=== PATIENT | female | born 1980 | race Caucasian/White ===

== ENCOUNTER 2016-07-20 11:44 | Inpatient (IN) | payer OTHER ==
[~2016-07-20] VITALS: Ht 167.6 cm; Wt 85.3 kg
--- NOTE | ~2016-07-20 | O ---
[place], [place] OPERATIVE NOTE NAME: KATHIA ROTHMAN UNIT #: [id number] ROOM: 405 DOCTOR: FAVIOLA CUEVAS MD BIRTHDATE: [birth year] DOS: GASTROENDOSCOPIC REPORT WORK: #06. INDICATIONS: The patient has presented with hemetemesis, undergoing investigation nausea, vomiting. Consultation has been dictated. PROCEDURE: Today's procedure part of investigation is panendoscopy plus biopsy. PREMEDICATION: Versed and Diprivan. SCOPE: Olympus folding gastroscope Q10 video. REPORT: After putting the patient in the left lateral position and after application of lubricant to the scope, the scope was introduced; thereafter, under direct visualization, I advanced through the length of the esophagus without difficulty. Esophagus and cervicothoracic distally carefully examined, distal esophagitis of minimal degree, hiatal hernia of about 2 cm, gastritis of moderate degree, antral biopsy was obtained. Duodenal bulb, second and third part within normal limits. The patient extubated, tolerated procedure well. IMPRESSION: Distal esophagitis. No Olivia-Alicea tear. Small hiatal hernia, gastritis, status post biopsy. PLAN: Protonix 40 mg q. day, regular diet. As far as UTI is concerned with heavy gram-negative bacteria, may be antibiotic as to continue on her based on sensitivity. As far as her hypokalemia, potassium can be given for potassium supplementation for 3.1 levels at the present time. Magnesium is normal. Liver function tests are normal. The latest CBC differential within normal limits. Thank you very much indeed. [place], [place] OPERATIVE NOTE NAME: KATHIA ROTHMAN UNIT #: [id number] ROOM: 405 DOCTOR: FAVIOLA CUEVAS MD BIRTHDATE: [birth year] FAVIOLA CUEVAS MD CM:OPRECORD:OPERATIVE NOTE [id number] FAVIOLA CUEVAS MD 08/26/16 0941 interface
--- NOTE | ~2016-07-20 | CON ---
[place], [place] REPORT OF CONSULTATION NAME: KATHIA ROTHMAN UNIT #: [id number] ROOM: 405 DOCTOR: FAVIOLA CUEVAS MD BIRTHDATE: [birth year] DOS: GASTROENDOSCOPIC CONSULTATION REPORT HISTORY OF PRESENT ILLNESS: A 36-year-old patient who has presented with nausea, vomiting, hematemesis and not feeling well. The patient presented to Emergency Room. The patient has been consuming large volume of alcohol vodka pint daily and therefore, we are searching the cause of hematemesis on her and consultation on this base. PAST MEDICAL HISTORY: Unremarkable. PAST SURGICAL HISTORY: Tonsillectomy, adenoidectomy, umbilical hernia x 2. SOCIAL HISTORY: Marijuana use, smoker, and alcohol consumer. ALLERGIES: TO PENICILLIN. FAMILY HISTORY: Noncontributory. REVIEW OF SYSTEMS: In general, HEENT: Denies double vision, blurred vision. RESPIRATORY: Denies shortness of breath. CARDIOVASCULAR: Denies chest pain. DIGESTIVE SYSTEM: Hematemesis. PHYSICAL EXAMINATION: VITAL SIGNS: Stable. HEENT: Head normocephalic, nontraumatic. Mouth and buccal mucosa edentulous. NECK: Supple, no thyromegaly. CHEST: Symmetric anatomy, equal expansion. HEART: Normal sinus rhythm, no gallop, no murmur. ABDOMEN: Soft. No hepato-organomegaly, obese. No rebound effect. EXTREMITIES: No cyanosis. No pedal edema. NEUROLOGIC: Alert, oriented to time, place and person. No asterixis. No encephalopathy. LABORATORY DATA: Labs reviewed, records reviewed. Electrolyte balance. Lactic acid 2.5. Liver function test normal. INR 1.0. White blood cell 12, H and H of 14 and 42, platelet count was 287. IMPRESSION: Hematemesis, post consumption of large volume of vodka. OTHER ADJUNCTIVE DIAGNOSES: Nicotine and marijuana dependency. PLAN AND DISCUSSION: We are going to proceed with panendoscopy ruling out this Olivia-Alicea tear. Thank you again. [place], [place] REPORT OF CONSULTATION NAME: KATHIA ROTHMAN UNIT #: [id number] ROOM: 405 DOCTOR: FAVIOLA CUEVAS MD BIRTHDATE: [birth year] Sincerely yours, FAVIOLA CUEVAS MD CM:CONSTR:REPORT OF CONSULTATION 1347 08/26/16 0940 interface
[~2016-07-20 11:44] MED LIST: ATARAX25 MG PO; EES400 MG PO; LOTRISONE 0.05%1 CRE TP; NKHM; PREDNISONE20 MG PO; TESSALON PERLE100 M1 PO; TRAMADOL HCL50 MG PO; VIBRAMYCIN100 MG PO; ZITHROMAX Z PA250 MG PO
[2016-07-20 11:46] VITALS: BP 154/90
[2016-07-20 12:06] LABS: BASO % 0.3 % (0.0-1.0); HEMATOCRIT 42.5 % (37.0-47.0); HEMOGLOBIN 14.3 g/dl (12.0-16.0); IG # 0.1 10*3/uL (0.0-0.1); LYMPH % 15.7 % (27.0-41.0); MEAN CELL VOLUME 93.8 fl (81.0-99.0); MEAN CORPUSCULAR HGB 31.6 pg (27.0-31.0); MEAN CORPUSCULAR HGB CONC 33.6 g/dl (33.0-37.0); MEAN PLATELET VOLUME 9.5 fl (9.6-12.3); MONO # 0.5 10*3/uL (0.1-1.0); NEUT # 10.1 10*3/uL (2.3-7.9); NEUT % 79.4 % (47.0-73.0); PLATELET COUNT AUTOMATED 287 10*3/uL (130-400); RED BLOOD COUNT 4.53 10*6/uL (4.10-5.10); WHITE BLOOD COUNT 12.7 10*3/uL (4.8-10.8)
[2016-07-20 12:16] LABS: PROTHROMBIN TIME 10.5 SECONDS (9.0-12.4)
[2016-07-20 12:20] LABS: BILIRUBIN NEGATIVE (NEGATIVE); BLOOD TRACE-INTACT (NEGATIVE); CLARITY SL CLOUDY (CLEAR); COLOR YELLOW (YELLOW); GLUCOSE NEGATIVE (NEGATIVE); KETONE NEGATIVE (NEGATIVE); LEUKO ESTERASE NEGATIVE (NEGATIVE); NITRITE NEGATIVE (NEGATIVE); PROTEIN 2+ (NEGATIVE); SPECIFIC GRAVITY 1.015 (1.005-1.030); UROBILINOGEN 0.2 E.U./dl (0.2-1.0)
[2016-07-20 12:23] LABS: ALBUMIN 3.8 gm/dl (3.1-4.5); ALKALINE PHOSPHATASE 61 U/L (45-117); BILIRUBIN, TOTAL 0.3 mg/dl (0.2-1.0); BUN 13 mg/dl (7-24); CARBON DIOXIDE 25 mmol/L (21-32); CHLORIDE 110 mmol/L (98-107); EST GLOM FILT AFRICAN AMERICAN > 60 ml/min; GLUCOSE 108 mg/dL (65-99); MAGNESIUM 2.2 mg/dL (1.5-2.1); POTASSIUM 3.7 mmol/L (3.5-5.1); SGOT/AST 16 IU/L (3-35); SGPT/ALT 21 U/L (12-78); SODIUM 147 mmol/L (136-145); TOTAL PROTEIN 7.4 gm/dL (6.4-8.2)
[2016-07-20 12:24] LABS: TROPONIN I < 0.015 ng/ml (<0.5)
[2016-07-20 12:27] LABS: URINE AMPHETAMINES < 1000 (1000ng/ml); URINE BARBITURATES < 200 (200ng/ml); URINE COCAINE < 300 (300ng/ml)
[2016-07-20 12:32] LABS: BACTERIA 1+
[2016-07-20 12:33] LABS: CALCIUM OXALATE CRYSTALS TRACE; URINE REFLEX COMMENT YES (NO); WBC 16-20 wbc/hpf (0-5)
[2016-07-20 13:57] VITALS: BP 154/100
[2016-07-20 14:03] LABS: LA>2 REFLEX 2 HR DRAW NOW
[2016-07-20 14:10] VITALS: BP 141/76
[2016-07-20 14:28] LABS: LA>2 RFLX FOLLOW UP AT 2 HRS 2.5 mmol/L (0.4-2.0)
[2016-07-20 14:30] VITALS: BP 148/96
[2016-07-20 16:00] VITALS: BP 132/86
[2016-07-20 16:14] LABS: LA>2 REFLEX 4 HR DRAW NOW
[2016-07-20 19:09] LABS: HEMATOCRIT 37.4 % (37.0-47.0)
[2016-07-20 19:43] LABS: CKMB 1.4 ng/ml (0.5-3.6); CPK 170 U/L (26-192)
[2016-07-20 19:45] LABS: TROPONIN I < 0.015 ng/ml (<0.5)
[2016-07-20 20:00] VITALS: BP 125/57
[2016-07-21] VITALS (8 sets, daily range): BP systolic 119–149; BP diastolic 64–92
[2016-07-21 00:29] LABS: HEMATOCRIT 36.7 % (37.0-47.0); HEMOGLOBIN 12.4 g/dl (12.0-16.0)
[2016-07-21 00:47] LABS: CKMB 1.6 ng/ml (0.5-3.6); CPK 144 U/L (26-192)
[2016-07-21 00:48] LABS: TROPONIN I < 0.015 ng/ml (<0.5)
[2016-07-21 06:40] LABS: BASO % 0.3 % (0.0-1.0); EOS # 0.1 10*3/uL (0.0-0.4); EOS % 0.9 % (1.0-4.0); HEMOGLOBIN 12.3 g/dl (12.0-16.0); IG # 0.1 10*3/uL (0.0-0.1); LYMPH # 2.9 10*3/uL (1.3-4.4); LYMPH % 32.7 % (27.0-41.0); MEAN CELL VOLUME 95.9 fl (81.0-99.0); MEAN CORPUSCULAR HGB 31.9 pg (27.0-31.0); MEAN CORPUSCULAR HGB CONC 33.2 g/dl (33.0-37.0); MEAN PLATELET VOLUME 10.1 fl (9.6-12.3); MONO # 0.5 10*3/uL (0.1-1.0); NEUT # 5.2 10*3/uL (2.3-7.9); NEUT % 59.5 % (47.0-73.0); PLATELET COUNT AUTOMATED 244 10*3/uL (130-400); RED BLOOD COUNT 3.86 10*6/uL (4.10-5.10); RED CELL DISTRI WIDTH 13.9 % (0-14.5); WHITE BLOOD COUNT 8.8 10*3/uL (4.8-10.8)
[2016-07-21 06:58] LABS: PROTHROMBIN TIME 10.6 SECONDS (9.0-12.4)
[2016-07-21 07:05] LABS: ALBUMIN 3.1 gm/dl (3.1-4.5); ALKALINE PHOSPHATASE 55 U/L (45-117); BILIRUBIN, TOTAL 0.8 mg/dl (0.2-1.0); BUN 9 mg/dl (7-24); CARBON DIOXIDE 25 mmol/L (21-32); CHLORIDE 108 mmol/L (98-107); CHOLESTEROL 104 mg/dL (<200); EST GLOM FILT AFRICAN AMERICAN > 60 ml/min; FREE T4 0.99 ng/dl (0.76-1.46); GLUCOSE 77 mg/dL (65-99); HDL CHOLESTEROL 55 mg/dl (40-60); LDL CHOLESTEROL 15 mg/dL (9-159); MAGNESIUM 1.7 mg/dL (1.5-2.1); PHOSPHOROUS 1.6 mg/dL (2.5-4.9); POTASSIUM 3.1 mmol/L (3.5-5.1); SGOT/AST 15 IU/L (3-35); SGPT/ALT 15 U/L (12-78); SODIUM 143 mmol/L (136-145); TOTAL PROTEIN 6.1 gm/dL (6.4-8.2); TRIGLYCERIDES 170 mg/dl (<150); VLDL CHOLESTEROL 34 mg/dL (6-40)
[2016-07-21 09:41] LABS: FOLIC ACID 10.22 ng/mL (>5.38)
== END 2016-07-21 17:40 | disposition home or self-care (01) | DRG 871 ==
LOC: ED 11:44 → 4E 13:36 → EDHOLD 13:36 → 4E 14:16
PROVIDERS: Family Medicine Adult Medicine; Hospitalist; Student in an Organized Health Care Education/Training Program
PROC: 0DB68ZX Excision of Stomach, Via Natural or Artificial Opening Endoscopic, Diagnostic (ICD-10-PCS; principal; 2016-07-20)
DX: A41.9 Sepsis, unspecified organism (principal); K29.01 Acute gastritis with bleeding; E44.0 Moderate protein-calorie malnutrition; F10.239 Alcohol dependence with withdrawal, unspecified; K20.9 Esophagitis, unspecified; K44.9 Diaphragmatic hernia without obstruction or gangrene; F12.90 Cannabis use, unspecified, uncomplicated; F17.210 Nicotine dependence, cigarettes, uncomplicated; Z84.89 Family history of other specified conditions; Z88.1 Allergy status to other antibiotic agents; Z88.0 Allergy status to penicillin; Z71.6 Tobacco abuse counseling; Z98.890 Other specified postprocedural states; Z68.30 Body mass index [BMI] 30.0-30.9, adult

== ENCOUNTER 2016-10-12 11:12 | Emergency (ER) | payer MEDICAID ==
[~2016-10-12] VITALS: Ht 170.1 cm; Wt 81.6 kg
[2016-10-12 11:35] LABS: BILIRUBIN NEGATIVE (NEGATIVE); BLOOD 2+ (NEGATIVE); CLARITY SL CLOUDY (CLEAR); COLOR YELLOW (YELLOW); GLUCOSE NEGATIVE (NEGATIVE); KETONE NEGATIVE (NEGATIVE); LEUKO ESTERASE 1+ (NEGATIVE); NITRITE NEGATIVE (NEGATIVE); PROTEIN 1+ (NEGATIVE); UROBILINOGEN 0.2 E.U./dl (0.2-1.0)
[2016-10-12 11:42] LABS: URINE REFLEX COMMENT YES (NO)
[2016-10-12 11:46] LABS: BACTERIA TRACE; EPITHELIAL CELLS 16-20; WBC 51-100 wbc/hpf (0-5)
[2016-10-12 11:55] LABS: BASO % 0.2 % (0.0-1.0); EOS % 0.1 % (1.0-4.0); HEMATOCRIT 38.8 % (37.0-47.0); HEMOGLOBIN 13.1 g/dl (12.0-16.0); IG # 0.1 10*3/uL (0.0-0.1); LYMPH # 0.7 10*3/uL (1.3-4.4); LYMPH % 3.5 % (27.0-41.0); MEAN CELL VOLUME 94.4 fl (81.0-99.0); MEAN CORPUSCULAR HGB 31.9 pg (27.0-31.0); MEAN CORPUSCULAR HGB CONC 33.8 g/dl (33.0-37.0); MEAN PLATELET VOLUME 9.7 fl (9.6-12.3); MONO # 1.2 10*3/uL (0.1-1.0); MONO % 6.3 % (3.0-9.0); NEUT # 16.5 10*3/uL (2.3-7.9); NEUT % 89.2 % (47.0-73.0); PLATELET COUNT AUTOMATED 242 10*3/uL (130-400); RED BLOOD COUNT 4.11 10*6/uL (4.10-5.10); RED CELL DISTRI WIDTH 13.8 % (0-14.5); WHITE BLOOD COUNT 18.4 10*3/uL (4.8-10.8)
[2016-10-12 12:07] LABS: ALBUMIN 3.1 gm/dl (3.1-4.5); BUN 10 mg/dl (7-24); CARBON DIOXIDE 22 mmol/L (21-32); CHLORIDE 106 mmol/L (98-107); GLUCOSE 145 mg/dL (65-99); MAGNESIUM 1.7 mg/dL (1.5-2.1); POTASSIUM 3.6 mmol/L (3.5-5.1); SGOT/AST 6 IU/L (3-35); SGPT/ALT 9 U/L (12-78); SODIUM 137 mmol/L (136-145)
[2016-10-12 12:24] LABS: ALKALINE PHOSPHATASE 63 U/L (45-117); BILIRUBIN, TOTAL 0.3 mg/dl (0.2-1.0); EST GLOM FILT AFRICAN AMERICAN > 60 ml/min
[2016-10-12 13:52] LABS: LA>2 REFLEX 2 HR DRAW NOW
== END 2016-10-12 17:13 | disposition short-term general hospital (02) ==
LOC: ED 11:12
PROVIDERS: Emergency Medicine
DX: R65.20 Severe sepsis without septic shock (principal); N20.1 Calculus of ureter; N12 Tubulo-interstitial nephritis, not specified as acute or chronic; F17.210 Nicotine dependence, cigarettes, uncomplicated; Z87.442 Personal history of urinary calculi; Z88.1 Allergy status to other antibiotic agents

== ENCOUNTER 2016-10-15 20:00 | Emergency (ER) | payer MEDICAID ==
[~2016-10-15] VITALS: Ht 170.1 cm; Wt 83.9 kg
[2016-10-15] MEDS ORDERED: PERCOCET 325 MG1 TA2 PO (22:44)
== END 2016-10-15 23:01 | disposition home or self-care (01) ==
LOC: ED 20:00
DX: N23 Unspecified renal colic (principal); Z87.442 Personal history of urinary calculi; F17.210 Nicotine dependence, cigarettes, uncomplicated; Z88.1 Allergy status to other antibiotic agents

== ENCOUNTER 2016-11-25 13:20 | Emergency (ER) | payer OTHER ==
[~2016-11-25] VITALS: Ht 170.1 cm; Wt 83.9 kg
[~2016-11-25 13:20] MED LIST changes: +PERCOCET 325 MG1 TA2 PO
[2016-11-25 14:09] LABS: BASO # 0.1 10*3/uL (0.0-0.1); BASO % 0.5 % (0.0-1.0); EOS # 0.2 10*3/uL (0.0-0.4); EOS % 1.6 % (1.0-4.0); HEMATOCRIT 40.7 % (37.0-47.0); HEMOGLOBIN 13.7 g/dl (12.0-16.0); IG # 0.1 10*3/uL (0.0-0.1); LYMPH # 2.5 10*3/uL (1.3-4.4); LYMPH % 23.1 % (27.0-41.0); MEAN CELL VOLUME 93.3 fl (81.0-99.0); MEAN CORPUSCULAR HGB 31.4 pg (27.0-31.0); MEAN CORPUSCULAR HGB CONC 33.7 g/dl (33.0-37.0); MEAN PLATELET VOLUME 9.6 fl (9.6-12.3); MONO # 0.5 10*3/uL (0.1-1.0); MONO % 4.4 % (3.0-9.0); NEUT # 7.6 10*3/uL (2.3-7.9); NEUT % 69.7 % (47.0-73.0); PLATELET COUNT AUTOMATED 306 10*3/uL (130-400); RED BLOOD COUNT 4.36 10*6/uL (4.10-5.10); RED CELL DISTRI WIDTH 13.4 % (0-14.5); WHITE BLOOD COUNT 10.9 10*3/uL (4.8-10.8)
[2016-11-25 14:11] LABS: BILIRUBIN 2+ (NEGATIVE); BLOOD 3+ (NEGATIVE); CLARITY TURBID (CLEAR); COLOR BROWN (YELLOW); GLUCOSE NEGATIVE (NEGATIVE); KETONE NEGATIVE (NEGATIVE); LEUKO ESTERASE 2+ (NEGATIVE); NITRITE NEGATIVE (NEGATIVE); PROTEIN 3+ (NEGATIVE)
[2016-11-25 14:26] LABS: ALBUMIN 3.7 gm/dl (3.1-4.5); BILIRUBIN, TOTAL 0.5 mg/dl (0.2-1.0); BUN 8 mg/dl (7-24); CARBON DIOXIDE 29 mmol/L (21-32); CHLORIDE 103 mmol/L (98-107); EST GLOM FILT AFRICAN AMERICAN > 60 ml/min; GLUCOSE 100 mg/dL (65-99); SGOT/AST 25 IU/L (3-35); SGPT/ALT 32 U/L (12-78); SODIUM 139 mmol/L (136-145); TOTAL PROTEIN 7.4 gm/dL (6.4-8.2)
[2016-11-25 14:29] LABS: BACTERIA 2+; EPITHELIAL CELLS 15-20; RBC TNTC rbc/hpf (0-2); URINE REFLEX COMMENT YES (NO); WBC TNTC wbc/hpf (0-5)
[2016-11-25 14:30] LABS: ALKALINE PHOSPHATASE 67 U/L (45-117)
[2016-11-25 16:07] LABS: LA>2 REFLEX 2 HR DRAW NOW
[2016-11-25] MEDS ORDERED: PYRIDIUM100 MG PO (16:29)
== END 2016-11-25 17:09 | disposition home or self-care (01) ==
LOC: ED 13:20
PROVIDERS: Physician Assistant
DX: T83.84XA Pain due to genitourinary prosthetic devices, implants and grafts, initial encounter (principal); F17.210 Nicotine dependence, cigarettes, uncomplicated; Z88.1 Allergy status to other antibiotic agents

== ENCOUNTER 2017-05-29 12:20 | Emergency (ER) | payer OTHER ==
[~2017-05-29] VITALS: Ht 170.1 cm; Wt 86.6 kg
[~2017-05-29 12:20] MED LIST changes: +PYRIDIUM100 MG PO
[2017-05-29] MEDS ORDERED: FLONASE ALLERG9.9 ML NAS (12:58)
== END 2017-05-29 13:01 | disposition home or self-care (01) ==
LOC: ED 12:20
DX: O99.513 Diseases of the respiratory system complicating pregnancy, third trimester (principal); J01.90 Acute sinusitis, unspecified; O99.333 Smoking (tobacco) complicating pregnancy, third trimester; F17.210 Nicotine dependence, cigarettes, uncomplicated; Z88.1 Allergy status to other antibiotic agents; Z90.89 Acquired absence of other organs; Z3A.32 32 weeks gestation of pregnancy

== ENCOUNTER 2018-08-13 11:29 | Emergency (ER) | payer OTHER ==
[~2018-08-13 11:29] MED LIST changes: +FLONASE ALLERG9.9 ML NAS
== END 2018-08-13 12:30 | disposition short-term general hospital (02) ==
LOC: ED 11:29
DX: T74.11XA Adult physical abuse, confirmed, initial encounter (principal); M54.5 Low back pain; M54.2 Cervicalgia; R42 Dizziness and giddiness; R51 Headache; F17.210 Nicotine dependence, cigarettes, uncomplicated; Z88.1 Allergy status to other antibiotic agents; Z79.899 Other long term (current) drug therapy; Y07.01 Husband, perpetrator of maltreatment and neglect

== ENCOUNTER 2018-09-26 08:47 | Emergency (ER) | payer OTHER ==
[~2018-09-26] VITALS: Ht 170.1 cm; Wt 77.1 kg
[2018-09-26 09:22] LABS: BILIRUBIN NEGATIVE (NEGATIVE); BLOOD NEGATIVE (NEGATIVE); CLARITY SL CLOUDY (CLEAR); COLOR YELLOW (YELLOW); GLUCOSE NEGATIVE (NEGATIVE); KETONE NEGATIVE (NEGATIVE); LEUKO ESTERASE NEGATIVE (NEGATIVE); NITRITE NEGATIVE (NEGATIVE); SPECIFIC GRAVITY 1.025 (1.005-1.030); UROBILINOGEN 0.2 E.U./dl (0.2-1.0)
[2018-09-26 09:39] LABS: BACTERIA 1+; MUCOUS 1+
[2018-09-26 09:48] LABS: BASO # 0.1 10*3/uL (0.0-0.1); BASO % 0.5 % (0.0-1.0); EOS # 0.1 10*3/uL (0.0-0.4); EOS % 0.6 % (1.0-4.0); HEMATOCRIT 46.9 % (37.0-47.0); HEMOGLOBIN 15.8 g/dl (12.0-16.0); LYMPH # 2.6 10*3/uL (1.3-4.4); LYMPH % 19.5 % (27.0-41.0); MEAN CELL VOLUME 95.7 fl (81.0-99.0); MEAN CORPUSCULAR HGB 32.2 pg (27.0-31.0); MEAN CORPUSCULAR HGB CONC 33.7 g/dl (33.0-37.0); MEAN PLATELET VOLUME 9.8 fl (9.6-12.3); MONO # 0.8 10*3/uL (0.1-1.0); MONO % 5.7 % (3.0-9.0); NEUT # 9.6 10*3/uL (2.3-7.9); NEUT % 73.2 % (47.0-73.0); PLATELET COUNT AUTOMATED 290 10*3/uL (130-400); RED CELL DISTRI WIDTH 13.5 % (0-14.5); WHITE BLOOD COUNT 13.2 10*3/uL (4.8-10.8)
[2018-09-26 10:11] LABS: ALBUMIN 3.7 gm/dl (3.1-4.5); ALKALINE PHOSPHATASE 74 U/L (45-117); BUN 17 mg/dl (7-24); CHLORIDE 106 mmol/L (98-107); CREATININE 0.97 mg/dL (0.55-1.02); LIPASE 174 U/L (73-393); POTASSIUM 3.5 mmol/L (3.5-5.1); SGOT/AST 15 IU/L (3-35); SGPT/ALT 20 U/L (12-78); SODIUM 142 mmol/L (136-145); TOTAL PROTEIN 7.6 gm/dL (6.4-8.2)
[2018-09-26] MEDS ORDERED: DOXYCYCLINE100 M3 PO (10:42)
== END 2018-09-26 11:07 | disposition home or self-care (01) ==
LOC: ED 08:47
PROVIDERS: Physician Assistant
DX: N23 Unspecified renal colic (principal); R19.7 Diarrhea, unspecified; F17.210 Nicotine dependence, cigarettes, uncomplicated; Z87.442 Personal history of urinary calculi; Z88.1 Allergy status to other antibiotic agents

== ENCOUNTER 2019-10-26 03:16 | Emergency (ER) | payer OTHER ==
[~2019-10-26] VITALS: Ht 167.6 cm; Wt 83.9 kg
[~2019-10-26 03:16] MED LIST changes: +DOXYCYCLINE100 M3 PO
[2019-10-26 03:46] LABS: HEMATOCRIT 32.8 % (37.0-47.0); MEAN CELL VOLUME 95.9 fl (81.0-99.0); MEAN CORPUSCULAR HGB 32.2 pg (27.0-31.0); MEAN CORPUSCULAR HGB CONC 33.5 g/dl (33.0-37.0); MEAN PLATELET VOLUME 9.3 fl (9.6-12.3); PLATELET COUNT AUTOMATED 291 10*3/uL (130-400); RED BLOOD COUNT 3.42 10*6/uL (4.10-5.10); RED CELL DISTRI WIDTH 13.7 % (0-14.5); WHITE BLOOD COUNT 16.6 10*3/uL (4.8-10.8)
[2019-10-26 03:52] LABS: BILIRUBIN NEGATIVE (NEGATIVE); BLOOD NEGATIVE (NEGATIVE); CLARITY SL CLOUDY (CLEAR); COLOR YELLOW (YELLOW); GLUCOSE NEGATIVE (NEGATIVE); KETONE NEGATIVE (NEGATIVE); LEUKO ESTERASE 1+ (NEGATIVE); NITRITE NEGATIVE (NEGATIVE); PH 6.5 (5.0-9.0); SPECIFIC GRAVITY 1.005 (1.005-1.030); UROBILINOGEN 0.2 E.U./dl (0.2-1.0)
[2019-10-26 03:59] LABS: ALKALINE PHOSPHATASE 128 U/L (45-117); BUN 6 mg/dl (7-24); CHLORIDE 108 mmol/L (98-107); LIPASE 85 U/L (73-393); SGOT/AST 13 IU/L (3-35); SGPT/ALT 14 U/L (12-78); SODIUM 138 mmol/L (136-145); TOTAL PROTEIN 6.4 gm/dL (6.4-8.2)
[2019-10-26 04:06] LABS: BASOPHILS 1 % (0-1); PLATELET SUFFICIENCY NORMAL (NORMAL); TOTAL CELLS COUNTED 100 #CELLS
== END 2019-10-26 04:18 | disposition short-term general hospital (02) ==
LOC: ED 03:16
PROVIDERS: Emergency Medicine
DX: O26.893 Other specified pregnancy related conditions, third trimester (principal); R10.31 Right lower quadrant pain; O99.323 Drug use complicating pregnancy, third trimester; F12.90 Cannabis use, unspecified, uncomplicated; O99.333 Smoking (tobacco) complicating pregnancy, third trimester; Z3A.36 36 weeks gestation of pregnancy; Z87.442 Personal history of urinary calculi; Z88.1 Allergy status to other antibiotic agents; Z79.2 Long term (current) use of antibiotics; Z79.899 Other long term (current) drug therapy; Z98.890 Other specified postprocedural states; Z90.89 Acquired absence of other organs

== ENCOUNTER 2019-11-01 15:47 | Emergency (ER) | payer OTHER ==
[~2019-11-01] VITALS: Ht 165.1 cm; Wt 77.1 kg
[2019-11-01 16:15] LABS: BILIRUBIN NEGATIVE (NEGATIVE); BLOOD 3+ (NEGATIVE); CLARITY SL CLOUDY (CLEAR); COLOR ORANGE (YELLOW); GLUCOSE NEGATIVE (NEGATIVE); KETONE TRACE (NEGATIVE); LEUKO ESTERASE TRACE (NEGATIVE); NITRITE NEGATIVE (NEGATIVE); PH 6.5 (5.0-9.0); UROBILINOGEN 0.2 E.U./dl (0.2-1.0)
[2019-11-01 16:22] LABS: RBC TNTC rbc/hpf (0-2)
[2019-11-01 16:23] LABS: BACTERIA 1+; WBC TNTC wbc/hpf (0-5)
[2019-11-01 16:40] LABS: HEMATOCRIT 33.5 % (37.0-47.0); MEAN CELL VOLUME 94.6 fl (81.0-99.0); MEAN CORPUSCULAR HGB 31.9 pg (27.0-31.0); MEAN CORPUSCULAR HGB CONC 33.7 g/dl (33.0-37.0); MEAN PLATELET VOLUME 8.9 fl (9.6-12.3); PLATELET COUNT AUTOMATED 445 10*3/uL (130-400); RED BLOOD COUNT 3.54 10*6/uL (4.10-5.10); RED CELL DISTRI WIDTH 13.4 % (0-14.5); WHITE BLOOD COUNT 21.2 10*3/uL (4.8-10.8)
[2019-11-01 16:55] LABS: ALBUMIN 1.8 gm/dl (3.1-4.5); ALKALINE PHOSPHATASE 95 U/L (45-117); BUN 14 mg/dl (7-24); CHLORIDE 106 mmol/L (98-107); CREATININE 0.84 mg/dL (0.55-1.02); LIPASE 551 U/L (73-393); POTASSIUM 3.3 mmol/L (3.5-5.1); SGOT/AST 22 IU/L (3-35); SGPT/ALT 24 U/L (12-78); SODIUM 138 mmol/L (136-145); TOTAL PROTEIN 5.9 gm/dL (6.4-8.2)
[2019-11-01 17:05] LABS: TOTAL CELLS COUNTED 100 #CELLS
[2019-11-01 17:06] LABS: POLYCHROMASIA SLIGHT
[2019-11-01 17:07] LABS: PLATELET SUFFICIENCY NORMAL (NORMAL)
[2019-11-01 17:09] LABS: TOXIC GRANULATION SLIGHT
== END 2019-11-01 23:29 | disposition short-term general hospital (02) ==
LOC: ED 15:47
PROVIDERS: Emergency Medicine
DX: S37.69XA Other injury of uterus, initial encounter (principal); N39.0 Urinary tract infection, site not specified; N73.9 Female pelvic inflammatory disease, unspecified; Z88.8 Allergy status to other drugs, medicaments and biological substances; Z79.899 Other long term (current) drug therapy; X58.XXXA Exposure to other specified factors, initial encounter; Y93.89 Activity, other specified; Y92.89 Other specified places as the place of occurrence of the external cause; Y99.8 Other external cause status

== ENCOUNTER 2020-03-06 18:25 | Emergency (ER) | payer OTHER ==
[~2020-03-06] VITALS: Ht 170.1 cm; Wt 72.6 kg
[2020-03-06 20:39] LABS: BASO % 0.7 % (0.0-1.0); EOS # 0.1 10*3/uL (0.0-0.4); EOS % 1.2 % (1.0-4.0); HEMATOCRIT 43.8 % (37.0-47.0); LYMPH # 1.9 10*3/uL (1.3-4.4); LYMPH % 33.9 % (27.0-41.0); MEAN CORPUSCULAR HGB CONC 32.6 g/dl (33.0-37.0); MONO # 0.6 10*3/uL (0.1-1.0); MONO % 10.8 % (3.0-9.0); PLATELET COUNT AUTOMATED 276 10*3/uL (130-400); RED BLOOD COUNT 4.76 10*6/uL (4.10-5.10); RED CELL DISTRI WIDTH 13.8 % (0-14.5); WHITE BLOOD COUNT 5.7 10*3/uL (4.8-10.8)
[2020-03-06 20:43] LABS: BILIRUBIN NEGATIVE; BLOOD NEGATIVE (NEGATIVE); CLARITY CLEAR (CLEAR); COLOR YELLOW (YELLOW); GLUCOSE NEGATIVE; KETONE NEGATIVE; LEUKO ESTERASE TRACE (NEGATIVE); NITRITE NEGATIVE (NEGATIVE); SPECIFIC GRAVITY 1.015 (1.001-1.030); UROBILINOGEN 0.2 E.U./dl (0.0-1.0)
[2020-03-06 20:50] LABS: BACTERIA 1+; EPITHELIAL CELLS 21-30
[2020-03-06 20:56] LABS: ALBUMIN 2.9 gm/dl (3.1-4.5); ALKALINE PHOSPHATASE 68 U/L (45-117); BUN 18 mg/dl (7-24); CHLORIDE 108 mmol/L (98-107); CREATININE 0.83 mg/dL (0.55-1.02); LIPASE 140 U/L (73-393); POTASSIUM 3.9 mmol/L (3.5-5.1); SGOT/AST 16 IU/L (3-35); SGPT/ALT 25 U/L (12-78); SODIUM 142 mmol/L (136-145); TOTAL PROTEIN 6.3 gm/dL (6.4-8.2)
== END 2020-03-07 00:38 | disposition home or self-care (01) ==
LOC: ED 18:25
PROVIDERS: Emergency Medicine
DX: E86.0 Dehydration (principal); R11.0 Nausea; R42 Dizziness and giddiness; R53.83 Other fatigue

== ENCOUNTER 2025-02-06 10:05 | Emergency (ER) | payer SELFPAY ==
[~2025-02-06] VITALS: Ht 167.6 cm; Wt 83.0 kg
[2025-02-06] MEDS ORDERED: Phenazopyridine Hydrochlorid2 100 MG TAB PO ONE (10:25)
[2025-02-06 10:46] LABS: BILIRUBIN Negative (Negative); BLOOD 1+ (Negative); CLARITY Cloudy (Clear); COLOR Yellow (Yellow); KETONE Negative (Negative); LEUKO ESTERASE 3+ (Negative); NITRITE Positive (Negative); PH 6.0 (4.5-8.0); SPECIFIC GRAVITY 1.015 (1.001-1.030); UROBILINOGEN 0.2 E.U./dl (0.0-1.0)
[2025-02-06 11:00] LABS: WBC TNTC wbc/hpf (0-5)
[2025-02-06 11:01] LABS: BACTERIA 2+
[2025-02-06] MEDS ORDERED: PYRIDIUM100 MG PO (11:03)
[2025-02-06] MEDS ORDERED: CIPRO500 MG PO (11:03)
== END 2025-02-06 11:18 | disposition home or self-care (01) ==
LOC: ED 10:05
PROVIDERS: Internal Medicine
DX: N39.0 Urinary tract infection, site not specified (principal); F17.210 Nicotine dependence, cigarettes, uncomplicated; Z87.442 Personal history of urinary calculi; Z88.1 Allergy status to other antibiotic agents; Z79.899 Other long term (current) drug therapy; Z79.2 Long term (current) use of antibiotics; Z98.890 Other specified postprocedural states; Z90.89 Acquired absence of other organs